=== PATIENT | male | born 1970 | race American Indian/Alaskan Native ===

== ENCOUNTER 2019-05-18 17:56 | Emergency (ER) | payer OTHER ==
[2019-05-18 18:52] LABS: ANION GAP 11.4; CHLORIDE,CL 103 mmol/L (101-111); SODIUM,NA 136 mmol/L (135-145)
--- NOTE | 2019-05-18 19:16 | EDM.PDOC ---
ED HPI GENERAL MEDICAL PROBLEM - General Chief Complaint: Chest Pain Stated Complaint: AMBULANCE Time Seen by Provider: 05/18/19 19:15 Source of Information: Reports: Patient, Police, RN, RN Notes Reviewed History Limitations: Reports: No Limitations - History of Present Illness INITIAL COMMENTS - FREE TEXT/NARRATIVE: patient presents to ER from [facility] with complaint of left-sided chest pain, into the left shoulder and down the left arm. Patient states approximately 2 months ago he did have a slight heart attack while in [place]. patient states the pain began last night, but he did not tell anyone until today. Patient states he does struggle with some anxiety, and states he also has a left torn rotator cuff. Onset: Gradual - Related Data Allergies Allergy/AdvReac Type Severity Reaction Status Date / Time No Known Allergies Allergy Verified 05/18/19 18:03 Home Meds: Home Meds . [No Known Home Meds] 05/18/19 [History] Past Medical History HEENT History: Reports: Other (See Below) Other HEENT History: blurry, uses reading glasses Cardiovascular History: Reports: CT Other Cardiovascular History: "slight CT in December" Respiratory History: Reports: None Gastrointestinal History: Reports: None Genitourinary History: Reports: None Musculoskeletal History: Reports: Back Pain, Chronic, Other (See Below) Other Musculoskeletal History: 2 disk in lower back bad from lifting weights Neurological History: Reports: None, Migraines Psychiatric History: Reports: Anxiety Endocrine/Metabolic History: Reports: None Hematologic History: Reports: None Immunologic History: Reports: None Oncologic (Cancer) History: Reports: None Dermatologic History: Reports: None - Past Surgical History Other Cardiovascular Surgeries/Procedures: Angiogram in Dec., has blockage, treat with diet GI Surgical History: Reports: None Social & Family History - Tobacco Use Tobacco Use Comment: states he goes through about a can of chew every 3 days, started around age 20. - Caffeine Use Caffeine Use: Reports: None ED ROS GENERAL - Review of Systems Review Of Systems: Comprehensive ROS is negative, except as noted in HPI. ED EXAM, GENERAL - Physical Exam Exam: See Below Exam Limited By: No Limitations General Appearance: Alert, WD/WN, No Apparent Distress, Anxious Eye Exam: Bilateral Eye: EOMI, Normal Inspection Ears: Normal External Exam, Hearing Grossly Normal Nose: Normal Inspection Throat/Mouth: Normal Inspection, Normal Voice, No Airway Compromise Head: Atraumatic, Normocephalic Neck: Normal Inspection, Supple, Non-Tender, Full Range of Motion Respiratory/Chest: No Respiratory Distress, Lungs Clear, Normal Breath Sounds, No Accessory Muscle Use, Chest Non-Tender Cardiovascular: Normal Peripheral Pulses, Regular Rate, Rhythm, No Edema, No Gallop, No JVD, No Murmur, No Rub Peripheral Pulses: 2+: Radial (L), Radial (R) GI/Abdominal: Normal Bowel Sounds, Soft, Non-Tender (Male) Exam: Deferred Rectal (Males) Exam: Deferred Back Exam: Normal Inspection, Full Range of Motion, NT Extremities: Normal Inspection, Normal Range of Motion, Non-Tender, Normal Capillary Refill, No Pedal Edema Neurological: Alert, Oriented, CN II-XII Intact, Normal Cognition, Normal Gait, Normal Reflexes, No Motor/Sensory Deficits Psychiatric: Normal Affect, Normal Mood, Anxious Skin Exam: Warm, Dry, Intact, Normal Color, No Rash Lymphatic: No Adenopathy Course - Vital Signs Last Recorded V/S: Last Vital Signs Temp 99.8 F 05/18/19 17:56 Pulse 95 05/18/19 17:56 Resp 22 H 05/18/19 17:56 BP 145/84 H 05/18/19 17:56 Pulse Ox 95 05/18/19 17:56 - Orders/Labs/Meds Orders: Active Orders 24 hr Category Date Time Status EKG Documentation Completion [RC] URGENT Care 05/18/19 18:12 Active Chest 1V Frontal [CR] Urgent Exams 05/18/19 18:12 Taken CKMB [CHEM] Stat Lab 05/18/19 18:25 Received Labs: Laboratory Tests 05/18/19 05/18/19 05/18/19 Range/Units 18:25 18:25 19:06 WBC 8.0 (5.0-10.0) 10^3/uL RBC 4.27 L (4.6-6.2) 10^6/uL Hgb 13.3 L (14.0-18.0) g/dL Hct 38.0 L (40.0-54.0) % MCV 89.0 (80-100) fL MCH 31.1 (27.0-34.0) pg MCHC 35.0 (33.0-35.0) g/dL Plt Count 337 (150-450) 10^3/uL Neut % (Auto) 63.5 (42.2-75.2) % Lymph % (Auto) 27.8 (20.5-50.1) % Smyth % (Auto) 7.5 (2-8) % Eos % (Auto) 0.9 L (1.0-3.0) % Baso % (Auto) 0.3 (0.0-1.0) % Sodium 136 (135-145) mmol/L Potassium 3.4 L (3.6-5.0) mmol/L Chloride 103 (101-111) mmol/L Carbon Dioxide 25.0 (21.0-31.0) mmol/L Anion Gap 11.4 BUN 13 (7-18) mg/dL Creatinine 0.9 (0.6-1.3) mg/dL Est Cr Clr Drug Dosing 96.06 mL/min Estimated GFR (MDRD) > 60 BUN/Creatinine Ratio 14.44 Glucose 143 H (74-105) mg/dL Calcium 8.9 (8.4-10.2) mg/dl Total Bilirubin 0.8 (0.2-1.0) mg/dL AST 23 (10-42) IU/L ALT 20 (10-60) IU/L Alkaline Phosphatase 72 (42-121) IU/L Troponin I < 0.02 (0.00-0.02) ng/ml B-Natriuretic Peptide 23 (0-100) pg/ml Total Protein 7.0 (6.7-8.2) g/dl Albumin 4.0 (3.2-5.5) g/dl Globulin 3.0 Albumin/Globulin Ratio 1.33 Urine Color Yellow (YELLOW) Urine Appearance Clear (CLEAR) Urine pH 6.0 (5.0-9.0) Ur Specific Al[place] >= 1.030 (1.005-1.030) Urine Protein Negative (NEGATIVE) Urine Glucose (UA) Negative (NEGATIVE) Urine Ketones Negative (NEGATIVE) Urine Occult Blood Negative (NEGATIVE) Urine Nitrite Negative (NEGATIVE) Urine Bilirubin Negative (NEGATIVE) Urine Urobilinogen 0.2 (0.2-1.0) mg/dL Ur Leukocyte Esterase Negative (NEGATIVE) - Radiology Interpretation Free Text/Narrative:: Chest xray: FINDINGS: Lungs: Unremarkable. No consolidation. Pleural space: Unremarkable. No pleural effusion. No pneumothorax. Heart/Mediastinum: Unremarkable. No cardiomegaly. Bones/joints: Unremarkable. IMPRESSION: No acute findings. Thank you for allowing us to participate in the care of your patient. Dictated and Authenticated by: Chaitanya Cote MD 05/18/2019 6:33 PM Central Time ([place] & [place]) See rad report Departure - Departure Time of Disposition: 19:22 Disposition: Home, Self-Care 01 Reason for Transfer *Q: Other Condition: Fair Clinical Impression: Angina at rest Instructions: Angina Pectoris, [id number], Nonspecific Chest Pain, Easy-to- Read Forms: ED Department Discharge Additional Instructions: follow-up with your primary care provider For referral for stress test Attempt to decrease stress and anxiety return to the ER with any worsening of symptoms Sepsis Event Note - Evaluation Sepsis Screening Result: No Definite Risk - Focused Exam Vital Signs: Vital Signs Temp Pulse Resp BP Pulse Ox 05/18/19 17:56 99.8 F 95 22 H 145/84 H 95 Date Exam was Performed: 05/18/19 Time Exam was Performed: 19:20
== END 2019-05-18 19:29 ==
LOC: DL.ED 17:56
DX: I20.9 Angina pectoris, unspecified (principal); F41.9 Anxiety disorder, unspecified
CPT/HCPCS: 36415; 71045; 80053; 81003; 82553; 83880; 84484; 85025; 93005; 99284; 99285-25

== ENCOUNTER 2019-06-05 13:56 | Emergency (ER) | payer SELFPAY ==
[2019-06-05] MEDS ORDERED: Ibuprofen 600 MG Tab PO ONE (14:21)
--- NOTE | 2019-06-05 14:27 | EDM.PDOC ---
<Myra Simmons - Last Filed: 06/05/19 14:22> ED HPI GENERAL MEDICAL PROBLEM - General Chief Complaint: Upper Extremity Injury/Pain Stated Complaint: LEFT SHOULDER PAIN Time Seen by Provider: 06/05/19 14:24 Source of Information: Reports: Patient History Limitations: Reports: No Limitations - History of Present Illness INITIAL COMMENTS - FREE TEXT/NARRATIVE: Patient presents to the ED by private vehicle with concerns of left shoulder pain. The patient describes left shoulder pain for many years. He reports a prior diagnosis of rotator cuff tendinopathy which he did have scheduled rotator cuff repair in [place]. Unfortunately he was unable to proceed with the procedure due to lack of insurance. He has also underwent numerous corticosteroid injections in the left shoulder in the past. The patient states that he works in the [employer] and does heavy lifting. The patient presents today requesting pain medication. He states that he understands the solution to his issue would be surgical consultation with orthopedics. The patient also reports a pocket of swelling to his left elbow. Onset: Unknown/Unsure Duration: Chronic Location: Reports: Upper Extremity, Left (left shoulder) Quality: Reports: Ache, Sharp Severity: Moderate Improves with: Reports: None Worsens with: Reports: Movement Context: Reports: Lifting Associated Symptoms: Reports: No Other Symptoms Left Shoulder Pain Score (Numeric/FACES): 7 - Related Data Allergies Allergy/AdvReac Type Severity Reaction Status Date / Time No Known Allergies Allergy Verified 06/05/19 14:05 Home Meds: Home Meds . [No Known Home Meds] 05/18/19 [History] Past Medical History HEENT History: Reports: Other (See Below) Other HEENT History: blurry, uses reading glasses Cardiovascular History: Reports: [place] Other Cardiovascular History: "slight [place] in December" Respiratory History: Reports: None Gastrointestinal History: Reports: None Genitourinary History: Reports: None Musculoskeletal History: Reports: Back Pain, Chronic, Other (See Below) Other Musculoskeletal History: 2 disk in lower back bad from lifting weights Neurological History: Reports: None, Migraines Psychiatric History: Reports: Anxiety Endocrine/Metabolic History: Reports: None Hematologic History: Reports: None Immunologic History: Reports: None Oncologic (Cancer) History: Reports: None Dermatologic History: Reports: None - Infectious Disease History Infectious Disease History: Reports: Chicken Pox - Past Surgical History Other Cardiovascular Surgeries/Procedures: Angiogram in Oct., has blockage, treat with diet GI Surgical History: Reports: None Social & Family History - Tobacco Use Smoking Status *Q: Current Every Day Smoker Years of Tobacco use: 30 Packs/Tins Daily: 1 - Caffeine Use Caffeine Use: Reports: None - Recreational Drug Use Recreational Drug Use: No Review of Systems - Review of Systems Review Of Systems: Comprehensive ROS is negative, except as noted in HPI. ED EXAM, GENERAL - Physical Exam Exam: See Below Exam Limited By: No Limitations General Appearance: Alert, No Apparent Distress Respiratory/Chest: No Respiratory Distress, Lungs Clear, Normal Breath Sounds Cardiovascular: Normal Peripheral Pulses, Regular Rate, Rhythm, No Murmur Extremities: Arm Pain (tenderness to palpation over left shoulder, left elbow), Limited Range of Motion (decreased range of motion in left shoulder secondary to pain), Other (olecranon bursitis to left elbow) Neurological: Alert, Oriented, No Motor/Sensory Deficits Psychiatric: Normal Affect, Normal Mood Skin Exam: Warm, Dry, Intact Course - Vital Signs Last Recorded V/S: Last Vital Signs Temp 98.7 F 06/05/19 14:00 Pulse 80 06/05/19 14:00 Resp 20 06/05/19 14:00 BP 139/101 H 06/05/19 14:00 Pulse Ox 97 06/05/19 14:00 - Orders/Labs/Meds Meds: Medications Discontinued Medications Generic Name Dose Route Start Last Admin Trade Name Francesco PRN Reason Stop Dose Admin Ibuprofen 600 mg 06/05/19 14:21 06/05/19 14:25 Motrin PO 06/05/19 14:22 600 mg ONETIME ONE Administration Departure - Departure Time of Disposition: 14:29 Disposition: Home, Self-Care 01 Condition: Good Clinical Impression: Olecranon bursitis of left elbow, Rotator cuff tear arthropathy of left shoulder - Discharge Information *PRESCRIPTION DRUG MONITORING PROGRAM REVIEWED*: Not Applicable *COPY OF PRESCRIPTION DRUG MONITORING REPORT IN PATIENT ANAM: Not Applicable Instructions: Shoulder Pain, [id number], Elbow Bursitis, [id number], Rotator Cuff Tear Forms: ED Department Discharge Additional Instructions: May take ibuprofen for pain. Take this medication with food. Apply ice to left elbow. Protect elbow from hard surfaces. Wear arsenio bandage to left elbow May apply heat to left shoulder prior to work day, apply ice to left shoulder after work day. May apply topical lidocaine patches to left shoulder for pain relief. Follow-up with primary care provider for referral to orthopedic surgery for definitive management. Sepsis Event Note - Evaluation Sepsis Screening Result: No Definite Risk - Focused Exam Vital Signs: Vital Signs Temp Pulse Resp BP Pulse Ox 06/05/19 14:00 98.7 F 80 20 139/101 H 97 Date Exam was Performed: 06/05/19 Time Exam was Performed: 14:22 <Yaritza Aquino - Last Filed: 06/05/19 14:39> Course - Re-Assessments/Exams Free Text/Narrative Re-Assessment/Exam: 06/05/19 14:38 I have examined the patient. I have discussed findings and treatment plan with the PA Student. I agree with the assessment and plan in the students note Sepsis Event Note - Focused Exam Date Exam was Performed: 06/05/19 Time Exam was Performed: 14:38
== END 2019-06-05 14:37 | disposition home or self-care (01) ==
LOC: DL.ED 13:56
DX: M75.102 Unspecified rotator cuff tear or rupture of left shoulder, not specified as traumatic (principal); M70.22 Olecranon bursitis, left elbow; F17.210 Nicotine dependence, cigarettes, uncomplicated
CPT/HCPCS: 99283; A9270-GY

== ENCOUNTER 2019-06-07 14:50 | Emergency (ER) | payer SELFPAY ==
--- NOTE | 2019-06-07 19:34 | EDM.PDOC ---
ED HPI GENERAL MEDICAL PROBLEM - General Chief Complaint: General Stated Complaint: BOTTOM RIGHT TOOTH, PAIN Time Seen by Provider: 06/07/19 19:29 Source of Information: Reports: Patient History Limitations: Reports: No Limitations - History of Present Illness INITIAL COMMENTS - FREE TEXT/NARRATIVE: c/o tooth ache, unable to get into [facility] due to covid-19 Oral/Mouth Pain Score (Numeric/FACES): 10 - Related Data Allergies Allergy/AdvReac Type Severity Reaction Status Date / Time No Known Allergies Allergy Verified 06/07/19 17:07 Home Meds: Home Meds . [No Known Home Meds] 05/18/19 [History] Past Medical History HEENT History: Reports: Other (See Below) Other HEENT History: blurry, uses reading glasses Cardiovascular History: Reports: [place] Other Cardiovascular History: "slight [place] in December" Respiratory History: Reports: None Gastrointestinal History: Reports: None Genitourinary History: Reports: None Musculoskeletal History: Reports: Back Pain, Chronic, Other (See Below) Other Musculoskeletal History: 2 disk in lower back bad from lifting weights Neurological History: Reports: Migraines Psychiatric History: Reports: Anxiety Endocrine/Metabolic History: Reports: None Hematologic History: Reports: None Immunologic History: Reports: None Oncologic (Cancer) History: Reports: None Dermatologic History: Reports: None - Infectious Disease History Infectious Disease History: Reports: Chicken Pox - Past Surgical History Other Cardiovascular Surgeries/Procedures: Angiogram in , has blockage, treat with diet GI Surgical History: Reports: None Social & Family History - Tobacco Use Smoking Status *Q: Current Every Day Smoker Years of Tobacco use: 30 Packs/Tins Daily: 1 - Caffeine Use Caffeine Use: Reports: None - Recreational Drug Use Recreational Drug Use: No ED ROS GENERAL - Review of Systems Review Of Systems: Comprehensive ROS is negative, except as noted in HPI. ED EXAM, GENERAL - Physical Exam Exam: See Below Exam Limited By: No Limitations General Appearance: Alert, WD/WN, Mild Distress, Moderate Distress, Other ( discomfort) Eye Exam: Bilateral Eye: PERRL (pupils ER @ 4mm) Ears: Hearing Grossly Normal Throat/Mouth: Normal Voice, No Airway Compromise, Other (right lower molar decay eith abscess) Head: Atraumatic Neck: Non-Tender, Full Range of Motion Respiratory/Chest: No Respiratory Distress Cardiovascular: Regular Rate, Rhythm GI/Abdominal: Soft, Non-Tender Neurological: Alert, Oriented, Normal Cognition, Normal Gait, No Motor/Sensory Deficits Psychiatric: Tearful Skin Exam: Warm, Dry, Normal Color Lymphatic: No Adenopathy Course - Vital Signs Last Recorded V/S: Last Vital Signs Temp 36.6 C 06/07/19 17:04 Pulse 98 06/07/19 17:04 Resp 20 06/07/19 17:04 BP 152/87 H 06/07/19 17:04 Pulse Ox 99 06/07/19 17:04 Departure - Departure Time of Disposition: 19:31 Disposition: Home, Self-Care 01 Condition: Good Clinical Impression: Tooth abscess, Dental caries - Discharge Information Instructions: Dental Abscess, [id number] Additional Instructions: 1) avoid solid foods, candies, sodas 2) see dentist karen rx givne; clindamycin 300mg qid x 40 vicodin 5/325mg bid prn x 6 Sepsis Event Note - Evaluation Sepsis Screening Result: No Definite Risk - Focused Exam Vital Signs: Vital Signs Temp Pulse Resp BP Pulse Ox 06/07/19 17:04 36.6 C 98 20 152/87 H 99 Date Exam was Performed: 06/07/19 Time Exam was Performed: 19:27
== END 2019-06-07 19:36 | disposition home or self-care (01) ==
LOC: DL.ED 14:50
DX: K04.7 Periapical abscess without sinus (principal); K02.9 Dental caries, unspecified
CPT/HCPCS: 99282; 99283

== ENCOUNTER 2020-01-15 13:07 | Emergency (ER) | payer SELFPAY | END 2020-01-15 14:54 | disposition left against medical advice (07) | LOC: DL.ED 13:07 | DX: Z53.21 Procedure and treatment not carried out due to patient leaving prior to being seen by health care provider (principal) ==

== ENCOUNTER 2021-07-27 17:52 | Emergency (ER) | payer SELFPAY ==
[2021-07-27] MEDS ORDERED: Acetaminophen/HYDROcodone 325-10 MG Tab PO ONE (17:53)
[2021-07-27] MEDS ORDERED: Clindamycin HCl 150 MG Cap PO ONE (17:53)
[2021-07-27] MEDS ORDERED: Acetaminophen/HYDROcodone 325-10 MG Tab ONE (19:22)
[2021-07-27] MEDS ORDERED: Clindamycin HCl 150 MG Cap ONE (19:22)
== END 2021-07-27 19:48 | disposition home or self-care (01) ==
LOC: DL.ED 17:52
DX: K04.7 Periapical abscess without sinus (principal); K02.9 Dental caries, unspecified; I25.2 Old myocardial infarction
CPT/HCPCS: 99282; 99283; A9270-GY

== ENCOUNTER 2022-05-05 19:28 | Emergency (ER) | payer MEDICAID | END 2022-05-05 21:21 | disposition home or self-care (01) | LOC: DL.ED 19:28 | DX: S70.11XA Contusion of right thigh, initial encounter (principal); I25.2 Old myocardial infarction; W18.30XA Fall on same level, unspecified, initial encounter; Y93.01 Activity, walking, marching and hiking | CPT/HCPCS: 99282; 99284 ==

== ENCOUNTER 2022-12-07 21:00 | Emergency (ER) | payer MEDICAID | END 2022-12-07 21:25 | disposition left against medical advice (07) | LOC: DL.ED 21:00 | DX: Z53.21 Procedure and treatment not carried out due to patient leaving prior to being seen by health care provider (principal) ==